=== PATIENT | female | born 1960 | race African-American/Black ===

== ENCOUNTER 2023-04-15 11:06 | Outpatient (REF) | payer OTHER, SELFPAY ==
[2023-04-15 12:01] VITALS: BMI 25.0
[2023-04-15 12:02] VITALS: BP 130/70; PULSE 76; RESP 18; TEMP 36.5; O2SAT 96
[2023-04-15 12:53] VITALS: BP 136/79; PULSE 72; RESP 17; O2SAT 98
== END 2023-04-15 11:07 | disposition home or self-care (01) ==
LOC: HO.MS 11:06
PROVIDERS: PCP Internal Medicine; Visit Provider Ophthalmology
PROC: (CPT 67840; principal; 2023-04-15 12:10)
DX: D04.11 Carcinoma in situ of skin of right eyelid, including canthus (principal); H02.9 Unspecified disorder of eyelid
CPT/HCPCS: 67840; 88304; 88305